=== PATIENT | male | born 1975 | race Caucasian/White ===

== ENCOUNTER 2018-10-14 19:59 | Inpatient (IN) | payer BC ==
[~2018-10-14] VITALS: Ht 200.7 cm; Wt 152.0 kg
[2018-10-14 21:18] LABS: Basophils # (auto) 0 uL; Basophils % (auto) 0.3 % (0.0-2.0); Eosinophils # (auto) 0.1 uL; Eosinophils % (auto) 0.7 % (0.0-7.0); Hematocrit 47.7 % (41.0-53.0); Hemoglobin 16.2 g/dL (13.5-17.5); Lymphocytes # (auto) 2.2 uL; Lymphocytes % (auto) 18.2 % (10.0-50.0); Mean Corpuscular Hemoglobin 31.3 pg (28.0-32.0); Monocytes % (auto) 8.2 % (0.0-12.0); Neutrophils # (auto) 8.9 uL; Neutrophils % (auto) 72.6 % (37.0-80.0); Nucleated Red Blood Cells % 0.4 %; Platelet Count (auto) 304 10^3/uL (140-450); Red Blood Cells 5.19 10^6/uL (4.5-5.90); Red Cell Distribution Width 12.8 % (11.8-14.3); White Blood Cell 12.2 10^3/uL (4.4-10.8)
[2018-10-14 21:30] LABS: Albumin 4.3 g/dL (3.4-5.0); Anion Gap 8 (5-15); Blood Urea Nitrogen 15 mg/dL (7-18); Calcium 8.5 mg/dL (8.5-10.1); Carbon Dioxide 26 mmol/L (21-32); Chloride 102 mmol/L (98-107); Glucose 97 mg/dL (74-106); Potassium 3.5 mmol/L (3.5-5.1); Sodium 136 mmol/L (136-145)
[2018-10-14 21:37] LABS: Alanine Aminotransferase 72 U/L (16-61); Alkaline Phosphatase 78 U/L (45-117); Aspartate Aminotransferase 25 U/L (15-37); Bilirubin, Total 2.5 mg/dL (0.2-1.0); GFR African American 97 mL/min; GFR Non-African American 80 mL/min; Total Protein 7.7 g/dL (6.4-8.2)
[2018-10-14] MEDS ORDERED: cefTRIAXone 1GM/50ML D5W 50 ML IV ONE (22:30)
[2018-10-14] MEDS ORDERED: ONDANSETRON HCL 4 MG/2 ML VIAL IV ONE (22:30)
[2018-10-14] MEDS ORDERED: metroNIDAZOLE 500 MG TAB PO ONE (22:30)
[2018-10-14] MEDS ORDERED: MORPHINE SULFATE 10 MG/ML INJ 1ML SDV IV ONE (22:30)
[2018-10-14] MEDS ORDERED: SODIUM CHLORIDE 0.9% 1,000 ML IV ONE (22:30)
[2018-10-14 23:06] LABS: INR 0.99 (0.9-1.15); Partial Thromboplastin Time 29.7 sec (23.78-33.04); Prothrombin Time 10.6 sec (9.27-12.13)
[2018-10-15] MEDS ORDERED: ACETAMINOPHEN 500 MG TAB PO PRN (03:15)
[2018-10-15] MEDS ORDERED: ONDANSETRON HCL 4 MG/2 ML VIAL IV PRN ×2 (03:15→09:30)
[2018-10-15] MEDS: SODIUM CHLORIDE 0.9% 1,000 ML IV SCH ×3 (03:27→06:14)
[2018-10-15] MEDS: metroNIDAZOLE 500MG/100ML 100 ML IV SCH ×3 (06:14→22:18)
[2018-10-15 06:48] LABS: Basophils # (auto) 0 uL; Basophils % (auto) 0.4 % (0.0-2.0); Eosinophils # (auto) 0.1 uL; Eosinophils % (auto) 1.2 % (0.0-7.0); Hematocrit 45.5 % (41.0-53.0); Hemoglobin 15.5 g/dL (13.5-17.5); Lymphocytes # (auto) 1.4 uL; Lymphocytes % (auto) 16.6 % (10.0-50.0); Mean Corpuscular Hemoglobin 31.5 pg (28.0-32.0); Mean Corpuscular Volume 92.7 fL (80.0-100.0); Monocytes # (auto) 0.9 uL; Monocytes % (auto) 10.6 % (0.0-12.0); Neutrophils % (auto) 71.2 % (37.0-80.0); Platelet Count (auto) 242 10^3/uL (140-450); Red Blood Cells 4.91 10^6/uL (4.5-5.90); Red Cell Distribution Width 13.4 % (11.8-14.3); White Blood Cell 8.4 10^3/uL (4.4-10.8)
[2018-10-15 07:04] LABS: Calcium 8.2 mg/dL (8.5-10.1); Potassium 4.4 mmol/L (3.5-5.1)
[2018-10-15] MEDS ORDERED: SUCCINYLCHOLINE CHLORIDE 20 MG/ML 10ML VIAL IV ONE (07:23)
[2018-10-15] MEDS ORDERED: LIDOCAINE 1% INJ PF 5ML AMP ONE (07:23)
[2018-10-15] MEDS ORDERED: PROPOFOL 10 MG/ML 20 ML IV ONE (07:27)
[2018-10-15] MEDS ORDERED: ROCURONIUM 10MG/ML 10ML VIAL IV ONE (07:28)
[2018-10-15] MEDS ORDERED: MIDAZOLAM HCL 1MG/1ML-2 ML VIAL ONE (07:51)
[2018-10-15] MEDS ORDERED: METOCLOPRAMIDE HCL 5MG/ml INJ 2ml VIAL ONE (07:52)
[2018-10-15] MEDS ORDERED: NALOXONE HCL 0.4 MG/ML VIAL IV PRN (08:00)
[2018-10-15] MEDS ORDERED: HYDROmorphone HCL 2 MG/ML VL IV PRN (08:00)
[2018-10-15] MEDS ORDERED: ONDANSETRON HCL 4 MG/2 ML VIAL IV ONE (08:00)
[2018-10-15] MEDS ORDERED: fentaNYL CITRATE 100 MCG/2 ML VL ONE (08:04)
[2018-10-15] MEDS ORDERED: NEOSTIGMINE 1 MG/ML INJ (10mg/10ML VIAL) ONE (08:38)
[2018-10-15] MEDS ORDERED: GLYCOPYRROLATE 0.2 MG/ML 1ML VIAL ONE (08:38)
[2018-10-15] MEDS: HYDROmorphone HCL 2 MG/ML VL IV PRN ×4 (09:14→09:50)
[2018-10-15] MEDS ORDERED: HYDROmorphone HCL 2 MG/ML VL IV ONE (09:30)
--- NOTE | 2018-10-15 10:13 | NUR ---
YUDI HILLIARD admitted to tele/MS after SBAR received from recovery collector. Patient oriented to AMISHA YOUNGBLOOD, primary RN, unit, room, bed, and unit policies regarding patient care and visiting hours. Patient encouraged to call if they need something. All questions and concerns addressed, patient verbalized understanding.
[2018-10-15 13:00] VITALS: BP 122/74
[2018-10-15] MEDS ORDERED: metroNIDAZOLE 500MG/100ML 100 ML IV SCH (14:00)
[2018-10-15] MEDS: MORPHINE SULF INJ 2 MG/ML SYRINGE 1ML IV PRN ×2 (16:27→20:28)
[2018-10-15] MEDS ORDERED: LOSA-46 PO (16:39)
[2018-10-15] MEDS ORDERED: CETI10CA PO (16:39)
[2018-10-15] MEDS ORDERED: VENL37.572 PO (16:39)
[2018-10-15 17:55] VITALS: BP 159/85
--- NOTE | 2018-10-15 18:11 | NUR ---
DRAINED CHELSEA: 80 ML OF SANGUINEOUS FLUID.
[2018-10-15] MEDS ORDERED: VENL150C2 PO (18:33)
--- NOTE | 2018-10-15 19:15 | NUR ---
CLOSING NOTE PATIENT RESTING IN BED, NO SIGNS OF DISTRESS NOTED.
[2018-10-15] MEDS ORDERED: LOSARTAN POTASSIUM 50 MG TAB PO SCH (20:00)
[2018-10-15] MEDS ORDERED: VENLAFAXINE HCL 37.5mg XR cap PO SCH (20:00)
--- NOTE | 2018-10-15 20:00 | NUR ---
Opening Shift Note Assumed care of patient, awake and alert, oriented x4. No S/S of distress/SOB, c/o abdl pain 8/, educated on pain mgt, will medicate as ordered and will reassess. Abdl incision present x3, no active bleeding noted, dsg is currently dry and intact, CHELSEA present- draining serosanguinous fluid. IS provided, educated/encouraged use, verbalized understanding and returned demo. Instructed on POC and to call for assist PRN, will continue to monitor for changes Q1hr and PRN. Side rails up x2, bed in lowest locked position, non skid socks on. Continue care.
[2018-10-15 20:59] LABS: Urine Bacteria NONE SEEN /hpf (None Seen); Urine Blood Negative /uL (Negative); Urine Specific Gravity 1.014 (1.001-1.035); Urine WBC 1 /hpf (0 - 3)
[2018-10-15 21:16] LABS: Alcohol, Urine < 3.0 mg/dL (0-5); Barbiturate Scree,Urine NEGATIVE (NEGATIVE); Benzodiazephine Screen, Urine POSITIVE (NEGATIVE); Cannabinoid Screen, Urine POSITIVE (NEGATIVE); Cocaine Screen, Urine NEGATIVE (NEGATIVE); Opiate Scree,Urine POSITIVE (NEGATIVE); Phencyclidine Screen, Urine NEGATIVE (NEGATIVE)
[2018-10-15 21:23] LABS: Amphetamine Screen, Urine NEGATIVE (NEGATIVE)
[2018-10-15 21:27] VITALS: BP 120/67
[2018-10-15] MEDS ORDERED: VENLAFAXINE HCL 37.5MG TABLET ONE ×2 (21:54)
[2018-10-15] MEDS ORDERED: cefTRIAXone 1GM/50ML D5W 50 ML IV SCH (22:00)
[2018-10-16] MEDS: MORPHINE SULF INJ 2 MG/ML SYRINGE 1ML IV PRN ×3 (00:44→09:30)
--- NOTE | 2018-10-16 05:05 | NUR ---
CHELSEA DRAIN OUTPUT 80 ML SEROSANGUINOUS FLUID
[2018-10-16 05:09] VITALS: BP 124/68
[2018-10-16 05:11] LABS: Basophils # (auto) 0 uL; Basophils % (auto) 0.2 % (0.0-2.0); Eosinophils # (auto) 0 uL; Eosinophils % (auto) 0.5 % (0.0-7.0); Hematocrit 45.9 % (41.0-53.0); Hemoglobin 15.7 g/dL (13.5-17.5); Lymphocytes # (auto) 1.4 uL; Lymphocytes % (auto) 14.9 % (10.0-50.0); Mean Corpuscular Hemoglobin 31.5 pg (28.0-32.0); Mean Corpuscular Hgb Conc. 34.1 g/dL (32.0-36.0); Mean Corpuscular Volume 92.1 fL (80.0-100.0); Monocytes # (auto) 0.9 uL; Monocytes % (auto) 9.3 % (0.0-12.0); Neutrophils # (auto) 7.2 uL; Neutrophils % (auto) 75.1 % (37.0-80.0); Platelet Count (auto) 299 10^3/uL (140-450); Red Blood Cells 4.98 10^6/uL (4.5-5.90); White Blood Cell 9.6 10^3/uL (4.4-10.8)
[2018-10-16 05:32] LABS: BUN/Creatinine Ratio 15.2; Calcium 8.1 mg/dL (8.5-10.1); Magnesium 2.3 mg/dL (1.6-2.6); Potassium 3.8 mmol/L (3.5-5.1)
[2018-10-16] MEDS: metroNIDAZOLE 500MG/100ML 100 ML IV SCH ×2 (06:05→14:00)
[2018-10-16 07:45] VITALS: BP 124/83
--- NOTE | 2018-10-16 07:50 | NUR ---
Opening Shift Note Assumed care of patient, awake and alert. No S/S of distress/SOB or pain. Instructed on POC and to call for assist PRN, will continue to monitor for changes Q1hr and PRN.
[2018-10-16] MEDS ORDERED: cefTRIAXone 1GM/50ML D5W 50 ML IV SCH (09:00)
[2018-10-16] MEDS ORDERED: LORATADINE 10 MG TAB PO SCH (10:00)
[2018-10-16] MEDS ORDERED: LORATADINE 10 MG TAB PO ONE (10:00)
[2018-10-16] MEDS ORDERED: LEVO500T21 PO (11:19)
[2018-10-16] MEDS ORDERED: METR500T PO (11:19)
[2018-10-16 13:00] VITALS: BP 132/82
--- NOTE | 2018-10-16 14:04 | NUR ---
Paged Dr. Prescott if patient is okay for discharge.
--- NOTE | 2018-10-16 14:45 | NUR ---
Dr. Prescott called back, states patient is cleared to go home.
--- NOTE | 2018-10-16 15:00 | NUR ---
Discharge instructions given as ordered. Encourage to follow up with PMD and surgeon Dr. Prescott as instructed. All questions and concerns addressed. Patient verbalized understanding. Medication reconciliation form completed and copy given to patient. IV removed with catheter intact, pressure dressing applied.
--- NOTE | 2018-10-16 15:25 | NUR ---
Dr. Prescott at bedside.
--- NOTE | 2018-10-16 15:35 | NUR ---
Patient taken to vehicle via wheelchair with all personal belongings, accompanied by staff and family member. No distress noted at time of departure.
--- NOTE | 2018-10-16 16:00 | NUR ---
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
== END 2018-10-16 15:35 | disposition home or self-care (01) | DRG 854 ==
LOC: ER 19:59 → OVERFLOW 10-15 03:04 → CENTRAL 10-15 10:19
PROVIDERS: ADMIT Nurse Practitioner Family; ATTEND Internal Medicine
PROC: 0DTJ4ZZ Resection of Appendix, Percutaneous Endoscopic Approach (ICD-10-PCS; principal; 2018-10-15 07:49)
DX: A41.9 Sepsis, unspecified organism (principal); K35.80 Unspecified acute appendicitis; D72.823 Leukemoid reaction; E66.01 Morbid (severe) obesity due to excess calories; F17.210 Nicotine dependence, cigarettes, uncomplicated; I10 Essential (primary) hypertension; J45.909 Unspecified asthma, uncomplicated; K76.0 Fatty (change of) liver, not elsewhere classified; Z68.37 Body mass index [BMI] 37.0-37.9, adult
CPT/HCPCS: 36415; 71045; 74176; 80048; 80053; 80307; 81001; 82247; 83735; 84484; 85025; 85610; 85730; 96361; 96365; 96367; 96375; G0378; J0330; J0696; J2250; J2405; J2704; J3490

== ENCOUNTER 2019-04-30 12:27 | Emergency (ER) | payer BC, OTHER ==
[~2019-04-30] VITALS: Ht 200.7 cm; Wt 152.0 kg
[~2019-04-30 12:27] MED LIST: CETI10CA PO; LEVO500T21 PO; LOSA-46 PO; METR500T PO; VENL150C2 PO
[2019-04-30] MEDS ORDERED: HYDROmorphone HCL 2 MG/ML VL IV ONE ×2 (13:00→15:45)
[2019-04-30] MEDS ORDERED: ONDANSETRON HCL 4 MG/2 ML VIAL IV ONE (13:00)
[2019-04-30 16:14] VITALS: BP 129/89
== END 2019-04-30 16:16 | disposition home or self-care (01) ==
LOC: ER 12:27
DX: S42.302A Unspecified fracture of shaft of humerus, left arm, initial encounter for closed fracture (principal); F17.210 Nicotine dependence, cigarettes, uncomplicated; I10 Essential (primary) hypertension; J45.909 Unspecified asthma, uncomplicated; W19.XXXA Unspecified fall, initial encounter; Y93.89 Activity, other specified; Y99.8 Other external cause status; Y92.89 Other specified places as the place of occurrence of the external cause
CPT/HCPCS: 29105; 73030; 73200; 96374; 96375; 96376; 99284; J1170; J2405